=== PATIENT | female | born 1980 | race Hispanic/Latino ===

== ENCOUNTER 2017-08-07 07:15 | Inpatient (IN) | payer OTHER, SELFPAY ==
[2017-08-07 08:00] VITALS: BMI 34.3
[2017-08-07] MEDS ORDERED: Promethazine HCl 25 MG/ML VIAL IM PRN ×2 (09:14→11:08)
[2017-08-07] MEDS ORDERED: Ondansetron HCl/PF 4 MG/2 ML Vial IVP PRN ×4 (09:14→14:23)
[2017-08-07] MEDS ORDERED: Bicitra 30 ML UDCUP PO SCH (09:15)
[2017-08-07] MEDS ORDERED: CEFAZOLIN/Water 2 GM/20 ML SYRINGE SLOW IVP SCH (09:15)
[2017-08-07] MEDS ORDERED: Lactated Ringer's 1,000 ML IV SCH ×3 (09:15→14:23)
[2017-08-07 09:20] LABS: Hemoglobin 12.7 g/dL (12.0-16.0); Mean Corpuscular HGB CONC 34.5 g/dL (32.0-36.0); Mean Corpuscular Hemoglobin 35.6 pg (27.0-31.0); Mean Platelet Volume 7.7 fL (7.4-10.4); Platelet Count 218 thou/uL (130-400); RBC Distribution Width 12.8 % (11.5-14.5); Red Blood Cell (RBC) Count 3.58 mill/uL (4.20-5.40); White Blood Cell (WBC) Count 7.5 thou/uL (4.8-10.8)
--- NOTE | 2017-08-07 09:36 | HP ---
DATE OF ADMISSION: 08/07/2017 REASON FOR ADMISSION: A 36 weeks' gestation with placenta previa, Churg-Shanna eosinophilic granulo matosis with polyangiitis and rupture of membranes at 36-37 weeks gestation. HISTORY OF PRESENT ILLNESS: Ms. Vale is a 36-year-old 1, para 0, EDC of 08/29/[address] Pito Stanton with third trimester transfer care from [facility]. The patient has the aforementione d issues with her and has been well controlled, but has had persistence of her previa. She reports rupture of membranes, approximately 0600 this morning. She denies vaginal bleeding. She re ports that she is having occasional contractions and active fetus. OB AND EMBEDDED SOFTWARE PROGRAMMER HISTORY: As noted in the HPI, O positive, group B negative. RPR, HIV, hepatitis B negati ve. 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 PAST SURGICAL HISTORY: Denies. ALLERGIES: Denies. MEDICATIONS: Steroids, Imuran, and vitamins. SOCIAL HISTORY: Denies tobacco, alcohol or drug use. FAMILY HISTORY: Noncontributory. REVIEW OF SYSTEMS: Noncontributory. PHYSICAL EXAMINATION: GENERAL: female in no acute distress, afebrile, pulse 73, blood pressure 142/79. HEENT: Within normal limits. LUNGS: Clear to auscultation bilaterally. HEART: Regular rhythm. BREASTS: No masses bilaterally. ABDOMEN: Soft with occasional indentable contractions. Fundal height 35. PELVIC: Vulva without lesions. Vagina, no discharge noted. Cervical exam deferred. EXTREMITIES: Without clubbing, cyanosis or edema. heart rate tracing category 1, positive accelerations, no decelerations. Baseline 140s to 150s . Contractions q.5-6 minutes. IMPRESSION: Churg-Shanna disease with placenta previa, rupture of membranes, 36-37 weeks gestation. PLAN: We will admit the patient and proceed with primary section with appropriate antibioti c and deep venous thrombosis prophylaxis. We will discuss the indication for stress dose steroids wi th anesthesia and continue the patient's steroids and immunosuppressants in hospital.
[2017-08-07 09:49] LABS: HBSAg Index 0.15 S/CO (0-0.99); Hep B Surf Ag Non-Reactive S/CO (NonReactive); Syphilis Antibody Nonreactive (Nonreactive); Syphilis Antibody Index 0.02 S/CO (<1.00 Non-Reactive)
[2017-08-07] MEDS ORDERED: Hydrocortisone Sod Succ/PF 100 mg/2 ml Vial ONE ×2 (10:19→17:06)
[2017-08-07] MEDS ORDERED: Oxytocin 10 UNITS/ML VIAL ONE (10:27)
[2017-08-07] MEDS ORDERED: Morphine PF 1 MG/ML SYR ONE (10:27)
[2017-08-07] MEDS ORDERED: ePHEDrine/0.9% NaCl/PF SYRINGE 50 mg/10 ml ONE ×2 (10:27→17:06)
[2017-08-07] MEDS ORDERED: Bupivacaine 0.75% W/DEXTROSE 8.25% 2 ML AMP ONE (10:33)
[2017-08-07] MEDS ORDERED: Lidocaine 1% PF 5 ML VIAL ONE (10:33)
[2017-08-07] MEDS ORDERED: Fentanyl 100 MCG/2 ML VIAL ONE (11:02)
[2017-08-07] MEDS ORDERED: Ketorolac Tromethamine 30 MG/ML VIAL IVP PRN ×2 (11:08→16:12)
[2017-08-07] MEDS ORDERED: Naloxone HCl 0.4 mg/ml Vial IVP PRN ×2 (11:08)
[2017-08-07] MEDS ORDERED: diphenhydrAMINE 50 MG/ML VIAL IVP PRN (11:08)
[2017-08-07] MEDS ORDERED: HYDROmorphone 2 MG/ML VIAL SLOW IVP PRN (11:08)
[2017-08-07] MEDS ORDERED: Meperidine HCl/PF 25 MG/ML VIAL SLOW IVP PRN (11:08)
[2017-08-07] MEDS ORDERED: Naloxone HCl 0.4 mg/ml Vial IV PRN (11:08)
[2017-08-07] MEDS ORDERED: Promethazine HCl 25 MG SUPP PR PRN (11:08)
[2017-08-07] MEDS ORDERED: Eucerin (Mineral Oil/Petrolatum,White) 30 gm Jar TOP PRN (11:08)
[2017-08-07] MEDS ORDERED: Communication Order-Pharmacy FS SCH (11:15)
[2017-08-07] MEDS ORDERED: Ketorolac Tromethamine 30 MG/ML VIAL IVP SCH (11:15)
--- NOTE | 2017-08-07 11:25 | PDOC.OPDEL ---
OB Operative/Delivery Note Delivery Dr/Surgeon: Maximino Assist: Eusebio Pre-Delivery Diagnosis: ruptured membrane, other (PREVIA @ 36 weeks) Procedure/Post Delivery Dx: primary low transverse CS Weeks gestation: 36 Anesthesia: spinal - Findings A Sex: female Weight: 6 lb 1 oz - 1 min: 8 - 5 min: 9 - Additional Findings/Plan Placenta delivered: manual removal findings: low transverse hysterotomy without extension, normal tubes, normal ovaries, other (multiple 1-2cm serosal and palpable submucosal fibroids) Estimated blood loss: 750ml Compilations/Other Findings: fibroids, see findings Post delivery plan: routine recovery
[2017-08-07] MEDS ORDERED: Morphine 10 MG/ML VIAL ONE ×2 (12:07→13:41)
[2017-08-07] MEDS ORDERED: LR / Pitocin 40 units/1000 ml 1,000 ML ONE (14:02)
[2017-08-07] MEDS ORDERED: LR / Pitocin 40 units/1000 ml 0 ML ONE (14:02)
[2017-08-07] MEDS ORDERED: Adacel (T-DAP) 0.5 ML VIAL IM ONE (14:23)
[2017-08-07] MEDS ORDERED: diphenhydrAMINE 25 MG CAP PO PRN (14:23)
[2017-08-07] MEDS ORDERED: Simethicone Chewable 80 MG TAB PO PRN (14:23)
[2017-08-07] MEDS ORDERED: Ibuprofen 800 MG TAB PO SCH (14:23)
[2017-08-07] MEDS ORDERED: Lanolin Ointment 7 GM TUBE TOP PRN (14:23)
[2017-08-07] MEDS ORDERED: LR w/ Pitocin 40 units/1000 ML BAG IV SCH (14:23)
[2017-08-07] MEDS ORDERED: Bisacodyl 10 MG SUPP PR PRN (14:23)
[2017-08-07] MEDS ORDERED: LR / Pitocin 40 units/1000 ml 1,000 ML IV SCH (14:45)
[2017-08-07] MEDS: Ferrous Sulfate 325 MG TAB PO SCH (16:16)
--- NOTE | 2017-08-07 18:05 | OP ---
DATE OF PROCEDURE: 08/07/2017 PREOPERATIVE DIAGNOSES: A 36-year-old G1 at 36 weeks and 6 days with premature rupture of membranes with known marginal placenta previa, Churg- Shanna syndrome with chronic steroid use for management of disease, A1GDM. POSTOPERATIVE DIAGNOSIS: Status post primary low transverse section. PROCEDURE PERFORMED: Primary low transverse section. SURGEON: Pito Stanton D.O. STORE STOCK HELP: Randolph Kaplan M.D. ANESTHESIA: Spinal per Dr. Lee. COMPLICATIONS: None. ESTIMATED BLOOD LOSS: 750 mL INTRAOPERATIVE FINDINGS: 1. Low transverse hysterotomy without extension. Normal appearing tubes and ovaries bilaterally. Multiple submucosal and subserosal 1-2 cm fibroids noted with exteriorization of the uterus. 2. Placenta delivered intact. 3. Uterus firm after delivery of placenta. 4. Vigorous female , Apgars 8 and 9, weight 6 pounds 1 ounce to nursery. 5. Surgical sites hemostatic. INDICATIONS FOR PROCEDURE: Ms. Jazmín Vale presented to Labor and Delivery with rupture of membranes at 36 weeks and 6 days this morning. She also was noted to have regular contractions on presentation to labor and delivery in the setting of a known placenta previa. The patient had previously been scheduled for a at 37 weeks and she was counseled for the indication for delivery upon presentation to Labor and Delivery. PROCEDURE DETAILS: The patient was taken back to the OR with IV fluids running. She received 2 grams of Ancef as well as a stress dose of steroids in the operating room, spinal anesthesia was obtained. The patient was then placed in dorsal supine position with a left lateral tilt. Saldana catheter was placed using sterile technique and the abdomen was prepped and draped in normal fashion for section. The abdomen was tested and anesthesia was found to be adequate. A Pfannenstiel skin incision was made with the scalpel. Skin incision was carried down through the subcutaneous tissue to the fascia. Once the fascia was reached, it was incised in the midline and extended superolaterally with curved Solis scissors. Wilma clamps were placed at the superior border of the fascia, which was sharply and bluntly dissected off the rectus abdominis muscles in both caudad and cephalad directions to allow adequate delivery of the infant. The rectus muscles were in the midline. The peritoneum was bluntly entered and stretched laterally. An Ozzie O retractor was placed into the peritoneal cavity for retraction, visualization and protection of the wound. A bladder flap was created using Metzenbaum scissors and dissected away from the planned hysterotomy site. The lower uterine segment was noted to be very thin and was entered 1 layer at a time with the scalpel. The hysterotomy was then bluntly entered and stretched superolaterally. The infant was then delivered through the hysterotomy without difficulty. Nose and mouth were suctioned. The cord was doubly clamped and cut and the infant was handed off to special care nurses in attendance. Cord blood was collected. The placenta was delivered. The uterus was exteriorized, massaged to firm with the above findings noted of multiple small fibroids. The uterus was then returned to the abdominal cavity and the hysterotomy was closed using Monocryl suture in a running locked fashion. After the hysterotomy was closed and hemostasis was noted, the hysterotomy and pericolic gutters were irrigated and suctioned dry. The hysterotomy was inspected again with no bleeding noted. The Ozzie O retractor was removed from the peritoneal cavity. The rectus muscles and fascia were inspected with no areas of bleeding noted. The fascia was closed with PDS suture from corner to corner and tied in the midline. The subcutaneous tissue was irrigated. No areas of bleeding were noted. The subcutaneous tissue was reapproximated with plain gut suture. Skin was closed with 4-0 Monocryl, dressed Dermabond dressing. The uterus was noted to be firm at the end of the case. There was no vaginal bleeding noted. The patient was stable and transferred to recovery room in good condition. Postoperative plans include prednisone 25 mg every 8 hours for the next 24 hours and then at the postoperative day 2, will resume her normal home medications. MARVEL
[2017-08-07] MEDS ORDERED: Meperidine HCl/PF 25 MG/ML VIAL IM PRN (23:15)
[2017-08-07] MEDS ORDERED: Acetaminophen/Codeine 30-300mg Tablet PO PRN (23:15)
[2017-08-08] MEDS: Docusate Calcium (SURFAK) 240 MG CAP PO SCH ×3 (03:44→21:25)
[2017-08-08 05:31] LABS: Hemoglobin 11.2 g/dL (12.0-16.0); Mean Corpuscular HGB CONC 35.1 g/dL (32.0-36.0); Mean Corpuscular Hemoglobin 36.7 pg (27.0-31.0); Mean Platelet Volume 7.7 fL (7.4-10.4); Platelet Count 201 thou/uL (130-400); RBC Distribution Width 12.9 % (11.5-14.5); Red Blood Cell (RBC) Count 3.05 mill/uL (4.20-5.40); White Blood Cell (WBC) Count 11.9 thou/uL (4.8-10.8)
--- NOTE | 2017-08-08 08:04 | PRG ---
DATE OF SERVICE: 08/08/2017 TIME OF SERVICE: 0700. SUBJECTIVE: The patient is postoperative day #1 status post primary section for placenta pr evia. She is also noted to have Churg-Shanna eosinophilic granulomatosis with polyangiitis. She palacios s no complaints. Hematocrit 32%. OBJECTIVE: VITAL SIGNS: Stable. The patient is afebrile. LUNGS: Clear to auscultation bilaterally. HEART: Regular rate and rhythm. ABDOMEN: Soft, nontender, nondistended. Incision is intact and dry. Normal lochia. EXTREMITIES: Without clubbing, cyanosis or edema. IMPRESSION: Doing well status post operative day #1 from primary section. PLAN: Routine care. Whitman of care by Dr. Husam Stanton on 08/09/2017.
[2017-08-08] MEDS: Prenatal Vitamin 1 TAB PO SCH (09:35)
[2017-08-08] MEDS: predniSONE 5 MG TAB PO SCH ×2 (09:36→17:55)
[2017-08-08] MEDS: Ferrous Sulfate 325 MG TAB PO SCH ×2 (09:37→17:34)
[2017-08-08] MEDS: azaTHIOprine 50 MG TAB PO SCH (10:56)
[2017-08-08] MEDS: Ibuprofen 800 MG TAB PO SCH ×2 (13:26→21:25)
[2017-08-08] MEDS ORDERED: Ketorolac Tromethamine 30 MG/ML VIAL IVP PRN (14:00)
[2017-08-09] MEDS: predniSONE 5 MG TAB PO SCH (00:59)
[2017-08-09] MEDS: Ibuprofen 800 MG TAB PO SCH ×3 (06:15→21:59)
--- NOTE | 2017-08-09 08:49 | PDOC.PP ---
Post Progress Note Post Day #: 2 Subjective: pain controlled, tolerating regular diet, N/V, ambulating, breast feeding PO intake tolerated: yes Flatus: yes Ambulation: yes Vital Signs (12 hours) Temp Pulse Resp BP 08/09/17 07:58 97.9 F 61 20 116/67 08/09/17 04:21 98.5 F 65 18 107/57 L 08/09/17 04:00 98.5 F 65 18 08/09/17 00:00 98.9 F 76 20 Weight Weight 175 lb - Physical Examination General: NAD (sitting up in chair eating) Respiratory: non-labored breathing Abdominal: no distention Extremities: negative homans (B) Skin: CS incision dry & intact, no rash Neurological: no gross focal deficits Psychiatric: A&Ox3 Result Diagrams: 08/08/17 04:29 Additional Labs: Post Labs Blood Type O POSITIVE 08/07/17 09:16 Hep Bs Antigen Non-Reactive S/CO (NonReactive) 08/07/17 09:16 (1) 36 weeks gestation of Code(s): Z3A.36 - 36 WEEKS GESTATION OF Status: Acute (2) premature rupture of membranes Code(s): O42.919 - PRETRM AINSLEY ROM, UNSP TIME BETW RUPT AND ONST LABR, UNSP TRI Status: Acute (3) Placenta previa affecting delivery Code(s): O44.00 - COMPLETE PLACENTA PREVIA NOS OR WITHOUT HEMOR, UNSP TRI Status: Acute (4) delivery delivered Code(s): O82 - ENCOUNTER FOR DELIVERY WITHOUT INDICATION Status: Acute - Assessment/Plan A/P: POD2 doing well, no concerns. Plan for DC tomorrow, discussed prednisone @ 5mg daily starting today.
[2017-08-09] MEDS ORDERED: predniSONE 1 MG/ML ML PO SCH (09:00)
[2017-08-09] MEDS: Prenatal Vitamin 1 TAB PO SCH (09:18)
[2017-08-09] MEDS: azaTHIOprine 50 MG TAB PO SCH (09:18)
[2017-08-09] MEDS: Ferrous Sulfate 325 MG TAB PO SCH ×2 (09:18→18:16)
[2017-08-09] MEDS: Docusate Calcium (SURFAK) 240 MG CAP PO SCH ×2 (09:18→21:03)
[2017-08-09] MEDS: Acetaminophen/Codeine 30-300mg Tablet PO PRN (21:03)
[2017-08-10] MEDS: Ibuprofen 800 MG TAB PO SCH ×2 (05:36→13:57)
[2017-08-10] MEDS: Prenatal Vitamin 1 TAB PO SCH (07:43)
[2017-08-10] MEDS: Acetaminophen/Codeine 30-300mg Tablet PO PRN (07:43)
[2017-08-10] MEDS: Docusate Calcium (SURFAK) 240 MG CAP PO SCH (07:43)
[2017-08-10] MEDS: Ferrous Sulfate 325 MG TAB PO SCH ×2 (07:48→15:17)
[2017-08-10] MEDS ORDERED: predniSONE 5 MG TAB PO SCH (09:00)
--- NOTE | 2017-08-10 09:10 | PDOC.PP ---
Post Progress Note Post Day #: 3 Subjective: Doing well, no concerns, plan for DC today PO intake tolerated: yes Flatus: yes Ambulation: yes Vital Signs (12 hours) Temp Pulse Resp 08/10/17 07:50 98.0 F 78 16 Weight Weight 175 lb - Physical Examination General: NAD Respiratory: clear to auscultation bilaterally, non-labored breathing Abdominal: no distention Extremities: negative homans (B) Skin: CS incision dry & intact, no rash Psychiatric: A&Ox3, normal affect Result Diagrams: 08/08/17 04:29 Additional Labs: Post Labs Blood Type O POSITIVE 08/07/17 09:16 Hep Bs Antigen Non-Reactive S/CO (NonReactive) 08/07/17 09:16 (1) 36 weeks gestation of Code(s): Z3A.36 - 36 WEEKS GESTATION OF Status: Acute (2) premature rupture of membranes Code(s): O42.919 - PRETRM AINSLEY ROM, UNSP TIME BETW RUPT AND ONST LABR, UNSP TRI Status: Acute (3) Placenta previa affecting delivery Code(s): O44.00 - COMPLETE PLACENTA PREVIA NOS OR WITHOUT HEMOR, UNSP TRI Status: Acute (4) delivery delivered Code(s): O82 - ENCOUNTER FOR DELIVERY WITHOUT INDICATION Status: Acute - Assessment/Plan POD3 doing well, plan for DC today.
[2017-08-10 09:13] VITALS: BP 112/62; TEMP 98.5
[2017-08-10] MEDS: azaTHIOprine 50 MG TAB PO SCH (09:50)
== END 2017-08-10 18:02 | disposition home or self-care (01) | DRG 765 ==
LOC: L&D/OP 07:15 → L&D 08:08 → 3SW 14:25
PROVIDERS: ADMIT Obstetrics & Gynecology; ATTEND Obstetrics & Gynecology
PROC: 10D00Z1 Extraction of Products of Conception, Low, Open Approach (ICD-10-PCS; principal; 2017-08-07)
DX: O42.013 Preterm premature rupture of membranes, onset of labor within 24 hours of rupture, third trimester (principal); O44.03 Complete placenta previa NOS or without hemorrhage, third trimester; M30.1 Polyarteritis with lung involvement [Churg-Strauss]; O24.429 Gestational diabetes mellitus in childbirth, unspecified control; Z37.0 Single live birth; Z3A.36 36 weeks gestation of pregnancy
CPT/HCPCS: 36415; 51702; 85027; 86780; 86850; 86900; 86901; 87340; 99285; J1720; J1885; J2001; J2175; J2270; J2274; J2590; J3010; J3490; J7500